=== PATIENT | male | born 2000 | race Caucasian/White ===

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

== ENCOUNTER 2021-07-05 20:12 | Emergency (ER) | payer MEDICAID ==
[~2021-07-05] VITALS: Ht 180.3 cm; Wt 100.0 kg
[~2021-07-05 20:12] MED LIST: IBUP-1653 PO
[2021-07-05] MEDS ORDERED: IBUPROFEN 600MG TABLET PO ONE (22:45)
[2021-07-05] MEDS ORDERED: BACITRACIN ZINC OINT UDPKT TOP ONE (22:45)
[2021-07-06] MEDS ORDERED: IBUP-2029 PO (00:21)
[2021-07-06] MEDS ORDERED: CEPH500C2 MT (00:21)
[2021-07-06] MEDS ORDERED: TETANUS, DIPHTHERIA, PERTUSSIS VAC/PF 0.5ML (>10YR OLD) IM ONE (00:45)
[2021-07-06 00:55] VITALS: BP 129/54
== END 2021-07-06 01:09 | disposition home or self-care (01) ==
LOC: ER 20:12
DX: S91.331A Puncture wound without foreign body, right foot, initial encounter (principal); W22.8XXA Striking against or struck by other objects, initial encounter; D16.31 Benign neoplasm of short bones of right lower limb; Y93.89 Activity, other specified; Y92.89 Other specified places as the place of occurrence of the external cause
CPT/HCPCS: 73630; 90471; 90715; 99283; Z7610